=== PATIENT | female | born 1965 | race Caucasian/White ===

== ENCOUNTER 2017-06-12 18:08 | Emergency (ER) | payer MEDICARE ==
[~2017-06-12] VITALS: Ht 162.6 cm; Wt 83.9 kg
--- NOTE | ~2017-06-12 | CT71 ---
[facility] A Service of [facility] / [facility] RADIOLOGY TEXT RESULTS PATIENT: SCOOTER MONTES LOCATION: [facility] : 65 UNIT #: [id number] AGE: [address]: Roni Thayer MD SEX: F ORDER DR: [id number] [facility] [address] [place], [place] [address] [id number] MR#: [id number] Acc #: [id number] NAME: SCOOTER MONTES. : 1965 SEX: F STUDY DATE/TIME: 06/12/2017 19:31 UNIT: MAMI ROOM: STUDY DESCRIPTION: CT Head Wo Contrast Attending Physician: Bright Thayer M.D. Ordering Physician: Jayden Restrepo D.O. Primary Care Physician: Mal Kraft M.D. MEDICAL IMAGING REPORT This report is preliminary unless electronic signature is present EXAM Head CT no contrast, 06/12/2017. INDICATION Headache and hypertension for a week. TECHNIQUE Noncontrast CT brain was performed. This CT exam was performed with one or more of the following radiation dose reduction techniques: automatic exposure control, adjustment of mA and/or kV according to patient size, and iterative reconstruction. COMPARISON We have no comparisons. FINDINGS CT BRAIN: Sulci and ventricles unremarkable. No midline shift. No evidence of acute intracranial hemorrhage. There is no mass, mass effect, or edema to suggest acute infarct. No extraaxial fluid collections are present. The globes are intact. The bones are intact. There is probable [id number] maxillary sinus disease on the left. Trace fluid in the mastoid air cells bilaterally. Chronic-appearing sphenoid sinus disease. IMPRESSION 1. No clearly acute intracranial process. No evidence of acute intracranial hemorrhage. 2. Multifocal sinus disease. Dictated by... Juan M Perez M.D. [facility] A Service of [facility] / [facility] RADIOLOGY TEXT RESULTS PATIENT: SCOOTER MONTES LOCATION: [facility] : 65 UNIT #: [id number] AGE: [address]: Roni Thayer MD SEX: F ORDER DR: THIS IS AN ELECTRONICALLY VERIFIED REPORT Juan M Perez M.D. at 06/13/2017 8:30 AM [place] TD: 06/13/2017 01:08 JOB #: [id number] MEDICAL IMAGING REPORT Page 1 of 1 COPY
[~2017-06-12 18:08] MED LIST: AMOXICILLIN; CHANTIX PO; DIAZEPAM PO; FLONASE16 GM; MEDROL; REMERON PO; SUDAFED; SYNTHROID PO; ULTRAM; VICODIN 5/500 T1 TAB; ZOLOFT
[2017-06-12 19:21] LABS: BASOPHIL# 0.2 X10e3 (0-0.3); BASOPHIL% 2.4 % (0-2.5); EOSINOPHIL# 0.3 X10e3 (0-0.7); EOSINOPHIL% 3.7 % (0.0-7.0); HEMATOCRIT 44.3 % (35.0-45.0); HEMOGLOBIN 14.3 gm/dL (12.0-16.0); LYMPHOCYTE# 3.6 X10e3 (1.0-3.5); LYMPHOCYTE% 40.6 % (17.0-45.0); MEAN CORPUSCULAR HEMOGLOBIN 28.5 PG (28-34); MEAN CORPUSCULAR HGB CONC 32.3 g/dL (30-36); MEAN PLATELET VOLUME 7.7 FL (6.5-11.5); MONOCYTE# 0.9 X10e3 (0-1.0); MONOCYTE% 10.4 % (3.0-12.0); NEUTROPHIL# 3.9 X10e3 (1.5-7.1); NEUTROPHIL% 42.9 % (40-75); PLATELET COUNT 481 X10e3 (140-420); RED BLOOD COUNT 5.03 X10e (3.90-5.30); RED CELL DISTRIBUTION WIDTH 15.8 % (11.0-15.5)
[2017-06-12 19:27] LABS: DIFF IND NO
[2017-06-12 19:35] LABS: PARTIAL THROMBOPLASTIN TIME 25.3 SECONDS (23.5-31.3); PROTHROMBIN TIME (PATIENT) 11.2 SECONDS (10.0-11.7)
[2017-06-12 19:48] LABS: BILIRUBIN, DIRECT 0.1 mg/dL (0.0-0.2); BILIRUBIN,INDIRECT 0.5 mg/dL (0.0-0.9); BILIRUBIN,TOTAL 0.6 mg/dL (0.2-2.0); CALCIUM SERUM 9.6 mg/dL (8.4-10.2); GLOM FILT RATE Estimated 65.2 mL/min (>60); POTASSIUM 3.8 mmol/L (3.5-5.1); PROTEIN TOTAL SERUM 6.6 g/dL (6.0-8.3)
[2017-06-12 21:27] LABS: URINE SOURCE CLEAN CATCH
[2017-06-12 21:33] LABS: URINE APPEARANCE CLEAR; URINE BILIRUBIN NEG (NEG); URINE BLOOD NEG (NEG); URINE COLOR YELLOW; URINE GLUCOSE NEG (NEG); URINE KETONE 1+ (NEG); URINE LEUKOCYTE ESTERASE NEG (NEG); URINE NITRATE NEG (NEG); URINE PROTEIN NEG (NEG); URINE SPECIFIC GRAVITY 1.018 (1.003-1.035); URINE UROBILINOGEN 0.2 MG/DL (NEG)
[2017-06-12 21:36] LABS: CULTURE INDICATED? NO
[2017-06-12 21:43] LABS: AMPHETAMINE NEG (NEG); BARBITURATES NEG (NEG); BENZODIAZEPINES POS (NEG); COCAINE NEG (NEG); MARIJUANA POS (NEG); OPIATES POS (NEG); TRICYCLIC ANTIDEPRESSANTS NEG (NEG); U METHADONE NEG (NEG)
== END 2017-06-12 22:28 | disposition home or self-care (01) ==
LOC: CED 18:08
PROVIDERS: Emergency Medicine
DX: L02.416 Cutaneous abscess of left lower limb (principal); R51 Headache; I10 Essential (primary) hypertension; Z88.1 Allergy status to other antibiotic agents; Z79.899 Other long term (current) drug therapy
CPT/HCPCS: 10060; 36415; 70450; 80048; 80076; 80307; 81003; 85025; 85610; 85730; 96374; 96375; 99284; J1200; J2765

== ENCOUNTER → 2017-06-26 | Outpatient (CLI) | payer MEDICARE ==
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
== END | disposition home or self-care (01) ==
LOC: CMRI 06-16 16:00
DX: S06.9X9A Unspecified intracranial injury with loss of consciousness of unspecified duration, initial encounter (principal); J32.9 Chronic sinusitis, unspecified; M47.892 Other spondylosis, cervical region; R90.82 White matter disease, unspecified
CPT/HCPCS: 70553; A9577